=== PATIENT | female | born 1965 | race African-American/Black ===

== ENCOUNTER 2016-12-19 10:26 | Emergency (ER) | payer BC | END 2016-12-19 14:53 | disposition home or self-care (01) | LOC: D.ER 10:26 | DX: M54.16 Radiculopathy, lumbar region (principal); F17.200 Nicotine dependence, unspecified, uncomplicated ==

== ENCOUNTER 2017-04-19 18:36 | Emergency (ER) | payer BC | END 2017-04-19 20:00 | disposition home or self-care (01) | LOC: D.ER 18:36 | DX: M54.5 Low back pain (principal); M62.830 Muscle spasm of back; F17.200 Nicotine dependence, unspecified, uncomplicated ==

== ENCOUNTER 2017-04-21 10:42 | Emergency (ER) | payer BC | END 2017-04-21 12:07 | disposition home or self-care (01) | LOC: D.ER 10:42 | DX: M54.5 Low back pain (principal); F17.200 Nicotine dependence, unspecified, uncomplicated ==

== ENCOUNTER 2017-08-15 10:33 | Emergency (ER) | payer BC | END 2017-08-15 15:20 | disposition home or self-care (01) | LOC: D.ER 10:33 | DX: H92.01 Otalgia, right ear (principal); J06.9 Acute upper respiratory infection, unspecified; F17.200 Nicotine dependence, unspecified, uncomplicated ==

== ENCOUNTER 2018-04-12 23:20 | Emergency (ER) | payer BC ==
[~2018-04-12] VITALS: Ht 165.1 cm; Wt 93.6 kg
[2018-04-12 23:37] VITALS: Ht 165.1 cm; Wt 93.6 kg
[2018-04-12] MEDS ORDERED: IBUPROFEN800 MG (23:38)
[2018-04-12] MEDS ORDERED: NEURONTIN800 MG (23:38)
[2018-04-12] MEDS ORDERED: CYCLOBENZAPRINE10 MG PO (23:38)
[2018-04-12] MEDS ORDERED: ELAVIL75 MG (23:39)
[2018-04-12] MEDS ORDERED: CYMBALTA20 MG (23:39)
[2018-04-13 01:53] VITALS: BP 127/89
== END 2018-04-13 01:53 | disposition home or self-care (01) ==
LOC: D.ER 23:20
DX: M25.552 Pain in left hip (principal); K74.60 Unspecified cirrhosis of liver; F17.200 Nicotine dependence, unspecified, uncomplicated

== ENCOUNTER 2020-01-04 06:34 | Emergency (ER) | payer MEDICARE, BC ==
[~2020-01-04] VITALS: Ht 165.1 cm; Wt 93.2 kg
[~2020-01-04 06:34] MED LIST: CYCLOBENZAPRINE10 MG PO; CYMBALTA20 MG; ELAVIL75 MG; IBUPROFEN800 MG; NEURONTIN800 MG
[2020-01-04 06:39] VITALS: Ht 165.1 cm; Wt 93.2 kg
[2020-01-04] MEDS ORDERED: PEPCID40 MG (06:43)
[2020-01-04] MEDS ORDERED: LEXAPRO10 MG (06:44)
[2020-01-04] MEDS ORDERED: NORTRIPTYLINE H50 MG PO (06:44)
[2020-01-04] MEDS ORDERED: MOBIC7.5 MG PO (06:45)
[2020-01-04] MEDS ORDERED: VERAPAMIL HCL40 MG PO (06:45)
[2020-01-04] MEDS ORDERED: NICODERM CQ1 EAC2 (06:48)
[2020-01-04] MEDS ORDERED: AUGMENTIN 875-11 TAB PO (07:44)
[2020-01-04] MEDS ORDERED: FLUTICASONE PRO16 GM NASAL (07:44)
[2020-01-04 08:01] VITALS: BP 126/72
== END 2020-01-04 08:03 | disposition home or self-care (01) ==
LOC: D.ER 06:34
DX: R04.0 Epistaxis (principal); J01.90 Acute sinusitis, unspecified; Z72.0 Tobacco use

== ENCOUNTER 2020-01-05 00:27 | Emergency (ER) | payer MEDICARE, BC ==
[~2020-01-05] VITALS: Ht 165.1 cm; Wt 93.2 kg
[~2020-01-05 00:27] MED LIST changes: +AUGMENTIN 875-11 TAB PO; +FLUTICASONE PRO16 GM NASAL; +LEXAPRO10 MG; +MOBIC7.5 MG PO; +NICODERM CQ1 EAC2; +NORTRIPTYLINE H50 MG PO; +PEPCID40 MG; +VERAPAMIL HCL40 MG PO
[2020-01-05 00:33] VITALS: Ht 165.1 cm; Wt 93.2 kg
[2020-01-05 01:19] VITALS: BP 126/65
== END 2020-01-05 01:19 | disposition home or self-care (01) ==
LOC: D.ER 00:27
DX: R04.0 Epistaxis (principal); G62.9 Polyneuropathy, unspecified